=== PATIENT | male | born 1995 | race Caucasian/White ===

== ENCOUNTER → 2020-03-05 14:52 | Outpatient (CLI) | payer SELFPAY ==
[2020-03-05 14:07] VITALS: BMI 43.5
--- NOTE | 2020-03-05 15:20 | FLU_PTH ---
PATIENT: KOKO TOMPKINS LOC: [facility]#:[id number] AGE/SX: 30/M ROOM: RE03/05/[address]: Dr. Kirby Reynaga MD : 1995 BED: DIS: SPEC #: [id number] RECD: 03/05/20 15:49 STATUS: LUIZA TOBIAS #: [id number] MARYURI: 03/05/20 15:[address]: Kirby Reynaga DEPT: CYTOLOGY RECD BY: Butch Kothari ENTERED: 03/06/20 09:30 SP TYPE: Fluid OTHR DR: Dr. Kaden Vazquez DO Tissues: A - Thyroid gland, NOS B - Thyroid gland, NOS C - Thyroid gland, NOS Procedures: Special Stain Group II Surgery Specimen Level IV Cytospin Fluid Cytology Other HEADER OPERATION: FNA isthmus biopsy PRE-OP DIAGNOSIS: Cystic thyroid nodule TISSUE SUBMITTED: A - FNA isthmus fluid for cytology, B - FNA isthmus fluid for cytology, C - FNA isthmus slides x10 DIAGNOSIS CYTOLOGY A. FNA isthmus fluid for cytology (cytospin and cell block): Bloody specimen, rare macrophages, benign follicular cells and scant colloid is noted. B. FNA isthmus fluid for cytology (cytospin and cell block): Consistent with cyst content. Numerous macrophages are noted. C. Isthmus, FNA (smears): Consistent with benign follicular nodule. Adequate for evaluation. KATYA:lalita 03/07/20 COMMENT Correlation with clinical, radiologic findings and appropriate follow up are necessary. CYTOLOGY STUDY Slides are reviewed. CYTOLOGY GROSS A - Received is 2 ml of red cloudy fluid labeled with the patient's name and and designated per the requisition as isthmus. Submitted for cytology preparation including cell block. B - Received is 2 ml of brown cloudy fluid labeled with the patient's name and and designated per the requisition as isthmus. Submitted for cytology preparation including cell block. C - Received are ten smears labeled with the patient's name and designated per the requisition as isthmus. Submitted for staining. / lalita 03/06/20 TC:5 CPT: 17337 x2, 04296 x2, 42823
[2020-03-05 15:37] LABS: Free T3 3.4 pg/mL (2.18-3.98); T4 Free Direct 0.84 ng/dL (0.76-1.46); Thyroid Stim Hormone (TSH) 0.97 uIU/mL (0.358-3.74)
== END ==
PROVIDERS: PCP Family Medicine; Referring Provider Surgery; Visit Provider Surgery
DX: E04.1 Nontoxic single thyroid nodule (principal)
CPT/HCPCS: 36415; 84439; 84443; 84481; 88108; 88161; 88305; 88313